=== PATIENT | male | born 1980 ===

== ENCOUNTER → 2017-02-28 | Emergency (ER) | payer OTHER ==
[~2017-02-28] VITALS: Ht 185.4 cm; Wt 63.5 kg
== END | disposition left against medical advice (07) ==
LOC: ER 16:53
DX: E86.0 Dehydration (principal); R53.81 Other malaise

== ENCOUNTER 2018-02-23 16:49 | Emergency (ER) | payer OTHER ==
[~2018-02-23] VITALS: Ht 188 cm; Wt 68.0 kg
[2018-02-23] MEDS ORDERED: MIRALAX510 GM PO (19:04)
== END 2018-02-23 19:09 | disposition home or self-care (01) ==
LOC: ER 16:49
DX: K59.09 Other constipation (principal)